=== PATIENT | female | born 1950 | race Caucasian/White ===

== ENCOUNTER 2016-12-18 22:04 | Emergency (ER) | payer OTHER ==
[~2016-12-18] VITALS: Ht 162.6 cm; Wt 88.6 kg
[~2016-12-18 22:04] MED LIST: ATARAX,VISTARIL25 MG PO; BUMEX1 MG PO; BUMEX2 MG PO; Bumex PO; COGENTIN0.5 MG PO; DEXILANT60 MG PO; HYDROCHLOROTHIA25 MG PO; KAPIDEX60 MG PO; LAMICTAL25 MG PO; LAMOTRIGINE150 MG PO; METOPROLOL SUCC25 MG PO; METOPROLOL TART25 MG PO; MICRO-K10 ME2 PO; NAVANE5 MG PO; PLAVIX75 MG PO; PRAVACHOL80 MG PO; PRAVASTATIN SOD80 MG PO; RAPAFLO8 MG PO; SEROQUEL; SEROQUEL12.5 MG PO; SKELAXIN800 MG PO; TRICOR145 MG PO; TYLENOL REGULA325 MG PO; Toprol XL PO; Tricor PO; ULTRAM50 MG PO; Ultracet PO; WELLBUTRIN SR150 MG PO; Wellbutrin XL PO; ZANTAC300 MG PO; ZOFRAN8 MG PO
[2016-12-19 01:00] VITALS: BP 149/82
== END 2016-12-19 01:40 | disposition home or self-care (01) ==
LOC: EME → EDBD 22:04 → EME 22:04
DX: M54.9 Dorsalgia, unspecified (principal); G89.11 Acute pain due to trauma; V89.2XXA Person injured in unspecified motor-vehicle accident, traffic, initial encounter; R20.2 Paresthesia of skin; M54.2 Cervicalgia; R51 Headache; J44.9 Chronic obstructive pulmonary disease, unspecified; E78.5 Hyperlipidemia, unspecified; K21.9 Gastro-esophageal reflux disease without esophagitis; R56.9 Unspecified convulsions; Z91.5 Personal history of self-harm; Z87.891 Personal history of nicotine dependence
CPT/HCPCS: 70450; 99281; 99283; J1885

== ENCOUNTER 2017-02-05 04:19 | Inpatient (IN) | payer OTHER ==
[~2017-02-05] VITALS: Ht 162.6 cm; Wt 87.3 kg
[2017-02-05 06:05] LABS: HEMATOCRIT 38.5 % (36.0-46.0); MCHC 32.2 G/DL (30.0-36.0); MCV 86.9 FL (83-99); MEAN PLAT.VOLUME 11.1 uM^3 (9.5-12.4); PLATELET COUNT 312 K/uL (156-360); RBC DIS.WIDTH-SD 40.6 % (39-53); RED BLOOD COUNT 4.43 M/uL (3.80-5.20); WHITE BLOOD COUNT 6.1 K/uL (4.1-10.2)
[2017-02-05 06:18] LABS: CHLORIDE 106 mEq/L (99-109); POTASSIUM 3.9 mEq/L (3.7-5.4); SODIUM 139 mEq/L (136-147)
[2017-02-05 06:20] LABS: GLUCOSE 104 mg/dL (70-99)
[2017-02-05 06:21] LABS: ANION GAP 9 MEQ/L (2-14)
[2017-02-05 06:23] LABS: GFR ESTIMATE (CALCULATED) 53 mL/min/; SERUM ETHYL ALCOHOL < 10 mg/dL
[2017-02-05 06:24] LABS: UREA NITROGEN (BUN) 14 mg/dL (9-23)
[2017-02-05] MEDS ORDERED: FENOFIBRATE160 M1 PO (08:36)
[2017-02-05] MEDS ORDERED: WELLBUTRIN XL150 MG PO (08:40)
[2017-02-05] MEDS ORDERED: AMITIZA24 MICROGR PO (08:41)
[2017-02-05 09:45] LABS: ADD MIUA? YES; BILIRUBIN NEGATIVE; BLOOD NEGATIVE; COLOR STRAW ((YELLOW)); GLUCOSE (STRIP) NEGATIVE; KETONES NEGATIVE; LEUKOCYTES MODERATE; NITRITE NEGATIVE; PROTEIN (STRIP) NEGATIVE; SPECIFIC GRAVITY 1.005 (1.000-1.030); UROBILINOGEN 0.2 MG/DL (0.2-1.0)
[2017-02-05 09:50] LABS: BACTERIA RARE /HPF; EPITHELIAL CELLS RARE /HPF; MUCUS NONE SEEN /LPF; RED BLOOD CELLS 0-5 /HPF (0-5); UCUL ADDED? NO
[2017-02-05 09:54] VITALS: BP 158/77
[2017-02-05 09:56] VITALS: BP 158/77
[2017-02-05 10:03] LABS: AMPHETAMINE NEGATIVE (500 ng/mL); BARBITURATES NEGATIVE (200 ng/mL); BENZODIAZEPINES NEGATIVE (150 ng/mL); COCAINE NEGATIVE (150 ng/mL); INTERNAL CONTROLS VALID? YES; METHADONE NEGATIVE (200 ng/mL); METHAMPHETAMINE NEGATIVE (500 ng/mL); OPIATES (MORPHINE) NEGATIVE (100 ng/mL); OXYCODONE NEGATIVE (100 ng/mL); PHENCYCLIDINE NEGATIVE (25 ng/mL); PROPOXYPHENE NEGATIVE (300 ng/mL); THC CANNABINOIDS NEGATIVE (50 ng/mL); TRICYCLIC ANTIDEPRESSANTS NEGATIVE (300 ng/mL)
[2017-02-05 15:15] VITALS: BP 161/67
[2017-02-05 18:36] VITALS: BP 145/65
[2017-02-06 07:30] VITALS: BP 124/60
[2017-02-06 15:38] VITALS: BP 124/64
[2017-02-07 07:29] VITALS: BP 124/60
[2017-02-07] MEDS ORDERED: SEROQUEL12.5 MG PO (09:33)
== END 2017-02-07 13:15 | disposition home or self-care (01) | DRG 885 ==
LOC: EME 04:19 → 1WEST 08:19 → EDOF 08:19 → 1WEST 09:48
PROVIDERS: Emergency Medicine
DX: F31.9 Bipolar disorder, unspecified (principal); R45.851 Suicidal ideations; I10 Essential (primary) hypertension; E78.5 Hyperlipidemia, unspecified; J44.9 Chronic obstructive pulmonary disease, unspecified; K21.9 Gastro-esophageal reflux disease without esophagitis; Z79.02 Long term (current) use of antithrombotics/antiplatelets; Z88.0 Allergy status to penicillin; Z88.2 Allergy status to sulfonamides; Z88.5 Allergy status to narcotic agent; Z88.1 Allergy status to other antibiotic agents; Z87.891 Personal history of nicotine dependence
CPT/HCPCS: 80048; 81003; 85027; G0480

== ENCOUNTER 2017-11-24 14:20 | Emergency (ER) | payer OTHER ==
[~2017-11-24] VITALS: Ht 162.6 cm; Wt 75.3 kg
[~2017-11-24 14:20] MED LIST changes: +AMITIZA24 MICROGR PO; +FENOFIBRATE160 M1 PO; +WELLBUTRIN XL150 MG PO
[2017-11-24 14:59] LABS: HEMATOCRIT 39.5 % (36.0-46.0); HEMOGLOBIN 13.1 G/DL (11.9-15.5); MCH 28.8 PG (29.0-34.0); MCHC 33.2 G/DL (30.0-36.0); MCV 86.8 FL (83-99); PLATELET COUNT 323 K/uL (156-360); RBC DIS.WIDTH-CV 13.1 % (11.8-14.6); RBC DIS.WIDTH-SD 40.9 % (39-53); RED BLOOD COUNT 4.55 M/uL (3.80-5.20); WHITE BLOOD COUNT 7.2 K/uL (4.1-10.2)
[2017-11-24 15:12] LABS: CHLORIDE 111 mEq/L (99-109); POTASSIUM 3.5 mEq/L (3.7-5.4); SODIUM 143 mEq/L (136-147)
[2017-11-24 15:14] LABS: GLUCOSE 132 mg/dL (70-99)
[2017-11-24 15:17] LABS: SERUM ETHYL ALCOHOL < 10 mg/dL
[2017-11-24 15:18] LABS: CREATININE 0.9 mg/dL (0.6-1.3); GFR ESTIMATE (CALCULATED) > 59 mL/min/
[2017-11-24 15:20] LABS: UREA NITROGEN (BUN) 5 mg/dL (9-23)
[2017-11-24 15:21] LABS: ACETAMINOPHEN (TYLENOL) < 10 mcg/mL (10-30); SALICYLATE < 5.0 MG/DL (15-30)
[2017-11-24 15:35] LABS: AMPHETAMINE NEGATIVE (500 ng/mL); BARBITURATES NEGATIVE (200 ng/mL); BENZODIAZEPINES NEGATIVE (150 ng/mL); BUPRENORPHINE NEGATIVE (10 ng/mL); COCAINE NEGATIVE (150 ng/mL); METHADONE NEGATIVE (200 ng/mL); METHAMPHETAMINE NEGATIVE (500 ng/mL); OPIATES (MORPHINE) NEGATIVE (100 ng/mL); OXYCODONE NEGATIVE (100 ng/mL); PHENCYCLIDINE NEGATIVE (25 ng/mL); PROPOXYPHENE NEGATIVE (300 ng/mL); THC CANNABINOIDS NEGATIVE (50 ng/mL); TRICYCLIC ANTIDEPRESSANTS NEGATIVE (300 ng/mL)
[2017-11-25 07:50] VITALS: BP 158/78
== END 2017-11-25 07:54 ==
LOC: EME 14:20
PROVIDERS: Emergency Medicine
DX: F32.9 Major depressive disorder, single episode, unspecified (principal); R45.851 Suicidal ideations; K21.9 Gastro-esophageal reflux disease without esophagitis; I10 Essential (primary) hypertension; E78.5 Hyperlipidemia, unspecified; J44.9 Chronic obstructive pulmonary disease, unspecified; Z91.5 Personal history of self-harm; Z88.5 Allergy status to narcotic agent; Z88.2 Allergy status to sulfonamides; Z88.0 Allergy status to penicillin; Z87.891 Personal history of nicotine dependence
CPT/HCPCS: 80048; 85027; 90837; 99281; 99285; G0480

== ENCOUNTER 2018-03-05 15:53 | Emergency (ER) | payer OTHER ==
[~2018-03-05] VITALS: Ht 162.6 cm; Wt 80.9 kg
[2018-03-05 18:28] LABS: HEMATOCRIT 42.5 % (36.0-46.0); HEMOGLOBIN 13.9 G/DL (11.9-15.5); MCH 27.6 PG (29.0-34.0); MCHC 32.7 G/DL (30.0-36.0); MCV 84.5 FL (83-99); PLATELET COUNT 363 K/uL (156-360); RBC DIS.WIDTH-CV 13.8 % (11.8-14.6); RBC DIS.WIDTH-SD 42.5 % (39-53); RED BLOOD COUNT 5.03 M/uL (3.80-5.20); WHITE BLOOD COUNT 8.7 K/uL (4.1-10.2)
[2018-03-05] MEDS ORDERED: ATARAX,VISTARIL50 MG PO (18:32)
[2018-03-05 18:38] LABS: CHLORIDE 110 mEq/L (99-109); POTASSIUM 3.5 mEq/L (3.7-5.4); SODIUM 142 mEq/L (136-147)
[2018-03-05 18:40] LABS: GLUCOSE 109 mg/dL (70-99); TOTAL PROTEIN 8.2 g/dL (6.4-8.3)
[2018-03-05 18:42] LABS: TOTAL BILIRUBIN 0.4 mg/dL (0.0-1.0)
[2018-03-05 18:43] LABS: SERUM ETHYL ALCOHOL < 10 mg/dL
[2018-03-05 18:44] LABS: ALKALINE PHOSPHATASE 81 IU/L (3-129); CREATININE 1.2 mg/dL (0.6-1.3); GFR ESTIMATE (CALCULATED) 48 mL/min/
[2018-03-05 18:45] LABS: AST (GOT) 23 IU/L (2-34)
[2018-03-05 18:46] VITALS: BP 127/91
[2018-03-05 18:46] LABS: UREA NITROGEN (BUN) 8 mg/dL (9-23)
[2018-03-05 18:47] LABS: SALICYLATE < 5.0 MG/DL (15-30)
[2018-03-05 18:48] LABS: ACETAMINOPHEN (TYLENOL) < 10 mcg/mL (10-30); ALT (GPT) 20 IU/L (3-49)
[2018-03-06] MEDS ORDERED: OLANZAPINE5 MG PO (09:55)
[2018-03-06] MEDS ORDERED: QUETIAPINE FUMA50 MG PO (09:57)
[2018-03-06] MEDS ORDERED: SERTRALINE HCL50 MG PO (09:58)
[2018-03-06] MEDS ORDERED: METOPROLOL SUCC25 MG PO (09:59)
[2018-03-06] MEDS ORDERED: LAMOTRIGINE150 MG PO (11:19)
[2018-03-06] MEDS ORDERED: CLOPIDOGREL75 MG PO (11:19)
[2018-03-06] MEDS ORDERED: DEXILANT60 MG PO (11:21)
[2018-03-06] MEDS ORDERED: RANITIDINE HCL300 MG PO (11:21)
[2018-03-06] MEDS ORDERED: VITAMIN B122500 MCG PO (11:27)
[2018-03-06] MEDS ORDERED: VITAMIN D2000 UNI1 PO (11:28)
== END 2018-03-05 18:49 | disposition home or self-care (01) ==
LOC: EME 15:53
PROVIDERS: Nurse Practitioner Family
DX: G47.00 Insomnia, unspecified (principal); Z86.59 Personal history of other mental and behavioral disorders; J44.9 Chronic obstructive pulmonary disease, unspecified; I10 Essential (primary) hypertension; K21.9 Gastro-esophageal reflux disease without esophagitis; E78.5 Hyperlipidemia, unspecified; F31.5 Bipolar disorder, current episode depressed, severe, with psychotic features; Z79.02 Long term (current) use of antithrombotics/antiplatelets; Z87.891 Personal history of nicotine dependence; Z91.5 Personal history of self-harm; Z98.890 Other specified postprocedural states; Z85.9 Personal history of malignant neoplasm, unspecified; Z91.048 Other nonmedicinal substance allergy status; Z88.1 Allergy status to other antibiotic agents; Z88.6 Allergy status to analgesic agent; Z88.5 Allergy status to narcotic agent; Z88.2 Allergy status to sulfonamides; Z88.0 Allergy status to penicillin
CPT/HCPCS: 80053; 81003; 85027; 90839; G0480

== ENCOUNTER 2018-03-06 03:14 | Inpatient (IN) | payer OTHER ==
[~2018-03-06] VITALS: Ht 167.6 cm; Wt 81.8 kg
[~2018-03-06 03:14] MED LIST changes: +ATARAX,VISTARIL50 MG PO
[2018-03-06 03:51] LABS: HEMATOCRIT 40.9 % (36.0-46.0); HEMOGLOBIN 13.2 G/DL (11.9-15.5); MCH 27.4 PG (29.0-34.0); MCHC 32.3 G/DL (30.0-36.0); MCV 84.9 FL (83-99); PLATELET COUNT 333 K/uL (156-360); RBC DIS.WIDTH-CV 13.8 % (11.8-14.6); RBC DIS.WIDTH-SD 42.5 % (39-53); RED BLOOD COUNT 4.82 M/uL (3.80-5.20); WHITE BLOOD COUNT 9.1 K/uL (4.1-10.2)
[2018-03-06 04:05] LABS: CHLORIDE 108 mEq/L (99-109); POTASSIUM 3.2 mEq/L (3.7-5.4); SODIUM 141 mEq/L (136-147)
[2018-03-06 04:07] LABS: GLUCOSE 113 mg/dL (70-99)
[2018-03-06 04:10] LABS: SERUM ETHYL ALCOHOL < 10 mg/dL
[2018-03-06 04:11] LABS: CREATININE 1.3 mg/dL (0.6-1.3); GFR ESTIMATE (CALCULATED) 44 mL/min/
[2018-03-06 04:12] LABS: UREA NITROGEN (BUN) 10 mg/dL (9-23)
[2018-03-06 08:36] VITALS: BP 141/74
[2018-03-06 08:37] VITALS: BP 141/74
[2018-03-06] MEDS ORDERED: OLANZAPINE5 MG PO (09:55)
[2018-03-06] MEDS ORDERED: QUETIAPINE FUMA50 MG PO (09:57)
[2018-03-06] MEDS ORDERED: SERTRALINE HCL50 MG PO (09:58)
[2018-03-06] MEDS ORDERED: METOPROLOL SUCC25 MG PO (09:59)
[2018-03-06] MEDS ORDERED: CLOPIDOGREL75 MG PO (11:19)
[2018-03-06] MEDS ORDERED: LAMOTRIGINE150 MG PO (11:19)
[2018-03-06] MEDS ORDERED: RANITIDINE HCL300 MG PO (11:21)
[2018-03-06] MEDS ORDERED: DEXILANT60 MG PO (11:21)
[2018-03-06] MEDS ORDERED: VITAMIN B122500 MCG PO (11:27)
[2018-03-06] MEDS ORDERED: VITAMIN D2000 UNI1 PO (11:28)
[2018-03-06 15:40] VITALS: BP 134/79
[2018-03-06 21:34] VITALS: BP 118/75
[2018-03-07 07:30] VITALS: BP 124/74
[2018-03-07 14:52] VITALS: BP 90/50
[2018-03-08 08:32] VITALS: BP 105/81
[2018-03-08] MEDS ORDERED: SEROQUEL12.5 MG PO (09:42)
[2018-03-08] MEDS ORDERED: COGENTIN0.5 MG PO (09:42)
[2018-03-08] MEDS ORDERED: NAVANE5 MG PO (09:44)
[2018-03-08] MEDS ORDERED: WELLBUTRIN SR150 MG PO (09:45)
[2018-03-08 21:33] VITALS: BP 160/69
[2018-03-09 08:26] VITALS: BP 121/57
[2018-03-09 16:06] VITALS: BP 142/78
[2018-03-10 08:33] VITALS: BP 117/55
[2018-03-10 15:52] VITALS: BP 134/78
[2018-03-11 07:37] VITALS: BP 146/78
[2018-03-11 16:17] VITALS: BP 135/60
[2018-03-12 07:57] VITALS: BP 146/66
[2018-03-12] MEDS ORDERED: FLUPHENAZINE HCL1 MG PO (09:38)
[2018-03-12] MEDS ORDERED: SEROQUEL100 MG PO (09:38)
[2018-03-12] MEDS ORDERED: WELLBUTRIN SR150 MG PO (09:38)
[2018-03-12] MEDS ORDERED: FLUPHENAZI25 MG/1 ML IM (09:44)
[2018-03-12] MEDS ORDERED: METOPROLOL SUCC25 MG PO (10:02)
== END 2018-03-12 13:07 | disposition home or self-care (01) | DRG 885 ==
LOC: EME 03:14 → 1WEST 06:07 → EDOF 06:07 → ENRESERV 08:04 → 1WEST 08:22
PROVIDERS: Emergency Medicine
DX: F31.5 Bipolar disorder, current episode depressed, severe, with psychotic features (principal); J44.9 Chronic obstructive pulmonary disease, unspecified; E78.5 Hyperlipidemia, unspecified; I10 Essential (primary) hypertension; R45.851 Suicidal ideations; E87.6 Hypokalemia; K21.9 Gastro-esophageal reflux disease without esophagitis; G47.00 Insomnia, unspecified; Z87.891 Personal history of nicotine dependence
CPT/HCPCS: 80048; 81003; 84132; 85027; 90837; 97150 GO; 97166 GO; 99281; 99284; G0480; J2060; J2680; J3486